=== PATIENT | female | born 1970 | race Caucasian/White ===

== ENCOUNTER 2017-02-01 18:02 | Emergency (ER) | payer BC ==
[2017-02-01 18:24] VITALS: BP 145/90; PULSE 86; TEMP 98.7; BMI 31.1
[2017-02-01] MEDS ORDERED: KETOROLAC TROMETHAMINE 15 MG/ML VIAL IM ONE (18:40)
[2017-02-01] MEDS ORDERED: SODIUM CHLORIDE 1,000 ML IV STA (18:41)
--- NOTE | 2017-02-01 18:45 | PDOC ---
History of Present Illness <Naa Christine - Last Filed: 02/01/17 18:45> - History of Present Illness Initial Comments: 02/01/17 19:03 CC: 1 week h/o flank pain Patient is a 46 y.o. female with no PMH who presents to our ED today c/o <Sabrina Jaimes - Last Filed: 02/01/17 19:04> - General Chief Complaint: Pain, Acute Stated Complaint: flank pain Time Seen by Provider: 02/01/17 18:34 Past History - Past Medical History Anemia: No Other medical history: denies. - Immunization History Td Vaccination: Yes TDAP Vaccination: Yes Immunization Up to Date: Yes - Psycho/Social/Smoking Cessation Hx Anxiety: No Suicidal Ideation: No Smoking Status: No Smoking History: Never smoked Years of Tobacco Use: 0 Number of Cigarettes Smoked Daily: 0 Hx Alcohol Use: No <Naa Christine - Last Filed: 02/01/17 18:45> <Sabrina Jaimes - Last Filed: 02/01/17 19:04> - Past Medical History Allergies/Adverse Reactions: Allergies Allergy/AdvReac Type Severity Reaction Status Date / Time No Known Allergies Allergy Verified 02/01/17 18:22 *Physical Exam - Vital Signs Last Vital Signs Temp Pulse Resp BP Pulse Ox 98.7 F 86 19 145/90 100 02/01/17 18:22 02/01/17 18:22 02/01/17 18:22 02/01/17 18:22 02/01/17 18:22 <Naa Christine - Last Filed: 02/01/17 18:45> - Vital Signs Last Vital Signs Temp Pulse Resp BP Pulse Ox 98.7 F 86 19 145/90 100 02/01/17 18:22 02/01/17 18:22 02/01/17 18:22 02/01/17 18:22 02/01/17 18:22 <Sabrina Jaimes - Last Filed: 02/01/17 19:04> ED Treatment Course - LABORATORY CBC & Chemistry Diagram: 02/01/17 18:45 02/01/17 18:45 - RADIOLOGY Radiology Studies Ordered: Category Date Time Status KIDNEY / RENAL US [US] Stat Ultrasound 02/01/17 18:41 Ordered - Medications Given in the ED: ED Medications Discontinued Medications Generic Name Dose Route Start Last Admin Trade Name Freq PRN Reason Stop Dose Admin Ketorolac Tromethamine 15 mg 02/01/17 18:40 02/01/17 18:57 Toradol Injection - IM 02/01/17 18:41 15 mg ONCE ONE Administration <Sabrina Jaimes - Last Filed: 02/01/17 19:04>
[2017-02-01] MEDS ORDERED: KETOROLAC TROMETHAMINE 15 MG/ML VIAL ONE (18:47)
[2017-02-01 18:57] LABS: BASOPHIL 0.5 % (0-2.0); EOSINOPHIL 1.5 % (0-4.5); MCH 28.7 pg (25.7-33.7); MCHC 32.9 g/dl (32.0-36.0); MEAN CELL VOLUME 87.3 fl (80-96); MEAN PLT VOLUME 7.8 fl (7.5-11.1); NEUTROPHILS 51.7 % (42.8-82.8); PLATELET COUNT 265 K/MM3 (134-434); RDW 15.3 % (11.6-15.6); WHITE BLOOD COUNT 9.2 K/mm3 (4.0-10.0)
--- NOTE | 2017-02-01 19:08 | PDOC ---
History of Present Illness - General Chief Complaint: Pain, Acute Stated Complaint: flank pain Time Seen by Provider: 02/01/17 18:34 History Source: Patient - History of Present Illness Initial Comments: 02/01/17 19:09 CC: 1 week h/o acute flank pain Patient is a 46 y.o. female with no significant PMH who presents to our ED today c/o of L sided flank pain that is constant, cramping and radiates both to her groin and down her L lower leg. ROS is positive for increased frequency with no dysuria or hematuria. Patient states Ibuprofen has provided some relief from the pain however the pain was particularly severe this morning. Patient denies any shortness of breath, chest pain, nausea, vomiting or diarrhea. Past Surgical: Breast enhancement Social: (-) nicotine, (-) alcohol, (-) marijuana/cocaine/heroin NKDA Past History - Past Medical History Allergies/Adverse Reactions: Allergies Allergy/AdvReac Type Severity Reaction Status Date / Time No Known Allergies Allergy Verified 02/01/17 18:22 Home Medications: Ambulatory Orders Ibuprofen [Motrin -] 600 mg PO TID #21 tablet 02/01/17 Anemia: No Other medical history: denies. - Immunization History Td Vaccination: Yes TDAP Vaccination: Yes Immunization Up to Date: Yes - Psycho/Social/Smoking Cessation Hx Anxiety: No Suicidal Ideation: No Smoking Status: No Smoking History: Never smoked Years of Tobacco Use: 0 Number of Cigarettes Smoked Daily: 0 Hx Alcohol Use: No Review of Systems - Review of Systems Constitutional: No: Chills, Fever HEENTM: No: Blurred Vision, Throat Pain Respiratory: No: Cough : Yes: Urgency. No: Burning, Dysuria Neurological: No: Headache, Numbness Psychiatric: No: Anxiety, Depression All Other Systems: Reviewed and Negative *Physical Exam - Vital Signs Last Vital Signs Temp Pulse Resp BP Pulse Ox 98.7 F 86 19 145/90 100 02/01/17 18:22 02/01/17 18:22 02/01/17 18:22 02/01/17 18:22 02/01/17 18:22 - Physical Exam General Appearance: Yes: Nourished, Appropriately Dressed HEENT: positive: EOMI, FELECIA Neck: positive: Trachea midline, Supple Respiratory/Chest: positive: Lungs Clear, Normal Breath Sounds Cardiovascular: positive: Regular Rhythm, Regular Rate, S1, S2 Gastrointestinal/Abdominal: positive: Normal Bowel Sounds, Soft, Other ( suprapubic pain) Musculoskeletal: positive: Normal Inspection, CVA Tenderness (R) Integumentary: positive: Normal Color, Dry, Diaphoresis Neurologic: positive: recording studio internship II-XII NML intact, Fully Oriented, Alert ED Treatment Course - LABORATORY CBC & Chemistry Diagram: 02/01/17 18:45 02/01/17 18:45 - ADDITIONAL ORDERS Additional order review: 02/01/17 18:45 RBC 4.49 D MCV 87.3 MCHC 32.9 RDW 15.3 MPV 7.8 Neutrophils % 51.7 Lymphocytes % 40.6 H Monocytes % 5.7 Eosinophils % 1.5 Basophils % 0.5 - RADIOLOGY Radiology Studies Ordered: Category Date Time Status KIDNEY / RENAL US [US] Stat Ultrasound 02/01/17 18:41 Ordered - Medications Given in the ED: ED Medications Discontinued Medications Generic Name Dose Route Start Last Admin Trade Name Freq PRN Reason Stop Dose Admin Ketorolac Tromethamine 15 mg 02/01/17 18:40 02/01/17 18:57 Toradol Injection - IM 02/01/17 18:41 15 mg ONCE ONE Administration Medical Decision Making - Medical Decision Making 02/01/17 19:48 Patient is a 46 y.o. female with no reported PMH who presents to our ED c/o 1 week h/o of L sided flank pain that radiates both to her groin and down her leg. Initial DDx is nephrolithiasis vs. UTI vs sciatica. PLAN 1. UA 2. CMP, CBC 3. Bedside U/S --> Kidney/Bladder U/S 4. Toradol + 1 L IV NS 02/01/17 20:02 UA significant for 3+ Blood, Leukocyte Esterase (-), Nitrite (-). Renal U/S shows no hydronephrosis, no renal calculi. Patient discharged home with instruction to f/u with PCP for further evaluation. *DC/Admit/Observation/Transfer Diagnosis at time of Disposition: Flank pain - Discharge Dispostion Disposition: HOME Condition at time of disposition: Good Admit: No - Prescriptions Prescriptions: Ibuprofen [Motrin -] 600 mg PO TID #21 tablet - Patient Instructions Printed Discharge Instructions: DI for Kidney Stones, DI for Sciatica Additional Instructions: You were evaluated in the Emergency Department today for back pain. Your ultrasound was negative for any kidney stone. The radiation of the pain to your leg is suggestive of sciatica. A prescription for Motrin has been called to your pharmacy. Please take this three times daily as needed. Please do not take more than 3 pills daily. Please see your primary care physician in the next 7-10 days for further evaluation. Please return to the Emergency Department should you experience severe pain, shortness of breath, chest pain or severe discomfort.
[2017-02-01 19:10] LABS: URINE APPEARANCE CLEAR; URINE BILIRUBIN NEGATIVE (NEGATIVE); URINE BLOOD 2+ (NEGATIVE); URINE COLOR STRAW; URINE GLUCOSE (UA) NEGATIVE (NEGATIVE); URINE KETONE NEGATIVE (NEGATIVE); URINE LEUK ESTERASE NEGATIVE (NEGATIVE); URINE NITRITE NEGATIVE (NEGATIVE); URINE PROTEIN NEGATIVE (NEGATIVE); URINE UROBILINOGEN NEGATIVE mg/dL (0.2-1.0)
[2017-02-01 19:17] LABS: URINE RBC 9 /hpf (0-3); URINE WBC 1 /hpf (3-5)
[2017-02-01 19:22] LABS: ALBUMIN 3.6 g/dl (3.4-5.0); ANION GAP 8 (8-16); CO2 29 mmol/L (21-32); GLUCOSE,RANDOM 102 mg/dL (74-106)
[2017-02-01 19:25] LABS: ALK PHOS 117 U/L (45-117); BILIRUBIN,TOTAL 0.1 mg/dL (0.2-1.0); CREATININE 0.8 mg/dL (0.55-1.02); SGOT/AST 13 U/L (15-37); SGPT/ALT 20 U/L (12-78); TOT PROT 7.8 g/dl (6.4-8.2)
--- NOTE | 2017-02-01 19:58 | PDOC ---
Attending Attestation - Resident Resident Name: Sabrina Jaimes - ED Attending Attestation I have performed the following: I have examined & evaluated the patient, The case was reviewed & discussed with the resident, I agree w/resident's findings & plan, Exceptions are as noted - HPI HPI: 02/01/17 19:57 46-year-old female presents with left flank pain and lower back pain radiating down her left leg. She has complaint of increased urination. She denies any nausea, vomiting, fever or chills. - Physicial Exam PE: 02/01/17 19:58 46-year-old female, alert and oriented 3 ambulating the emergency department with complaint of left back pain that is radiating down her left leg. HEENT within normal limits Neck supple Lungs clear to auscultation bilaterally. CVS regular rate and rhythm S1, S2. Abdomen there is no tenderness or rebound in her upper or lower quadrants, abdomen is soft, flat Extremities full range of motion, no erythema, no cellulitis. Pain radiating from the left buttocks down the back of her leg Mild left CVA tenderness Neuro alert and oriented 3 ambulating with ease and emergency department - Medical Decision Making 02/01/17 22:47 no evidence of UTI, pt does have c/o pain radiating from lower buttocks down back of her leg IMP sciatica
== END 2017-02-01 21:11 | disposition home or self-care (01) ==
LOC: JER 18:02
PROC: 3E0337Z Introduction of Electrolytic and Water Balance Substance into Peripheral Vein, Percutaneous Approach (ICD-10-PCS; principal; 2017-02-01)
PROC: 3E0233Z Introduction of Anti-inflammatory into Muscle, Percutaneous Approach (ICD-10-PCS; 2017-02-01)
DX: M54.42 Lumbago with sciatica, left side (principal)
CPT/HCPCS: 36415; 76775-TC; 80053; 81003; 81015; 85025; 99283-25

== ENCOUNTER 2022-02-02 23:09 | Observation (INO) | payer BC ==
[2022-02-02 23:30] VITALS: RESP 18; BMI 32.0
[2022-02-03 00:49] LABS: BASO % 0.8 % (0-2.0); EOS % 1.3 % (0-4.5); HEMATOCRIT 40.8 % (32.4-45.2); HEMOGLOBIN 13.8 GM/dL (10.7-15.3); LYMPH % 35.6 % (8-40); MCH 28.9 pg (25.7-33.7); MCHC 33.9 g/dl (32.0-36.0); MEAN CELL VOLUME 85.1 fl (80-96); MEAN PLT VOLUME 7.2 fl (7.5-11.1); MONO % 7.1 % (3.8-10.2); NEUT % 55.2 % (42.8-82.8); PLATELET COUNT 298 10^3/uL (134-434); RBC 4.79 M/mm3 (3.60-5.2); RDW 15.7 % (11.6-15.6); WHITE BLOOD COUNT 11.7 K/mm3 (4.0-10.0)
[2022-02-03 01:10] LABS: CHLORIDE 99 mmol/L (98-107); SODIUM 134 mmol/L (136-145)
[2022-02-03 01:12] LABS: ALBUMIN 3.8 g/dl (3.4-5.0); CALCIUM 8.8 mg/dL (8.5-10.1)
[2022-02-03 01:13] LABS: BLOOD UREA NITROGEN 34.3 mg/dL (7-18); CO2 26 mmol/L (21-32); GLUCOSE,RANDOM 96 mg/dL (74-106)
[2022-02-03 01:16] LABS: CREATININE 1.4 mg/dL (0.55-1.3); SGOT/AST 49 U/L (15-37); SGPT/ALT 21 U/L (13-61)
[2022-02-03 01:17] LABS: BILIRUBIN,TOTAL 0.4 mg/dL (0.2-1); TOT PROT 8.6 g/dl (6.4-8.2)
[2022-02-03 01:19] LABS: ALK PHOS 101 U/L (45-117)
[2022-02-03] MEDS ORDERED: SODIUM CHLORIDE 0.9% 500 ML INFUS.BAG IV ONE (01:23)
[2022-02-03 01:31] LABS: ANION GAP 8 MMOL/L (8-16)
[2022-02-03 02:43] LABS: CALCIUM 8.3 mg/dL (8.5-10.1)
[2022-02-03 02:47] LABS: CREATININE 1.1 mg/dL (0.55-1.3)
[2022-02-03 03:05] LABS: EPI CELLS 2 /uL (0-25.1); HYALINE CASTS 0 /uL (0-3.1); PH,URINE 5.5 (5.0-8.0); URINE APPEARANCE CLEAR; URINE BACTERIA 18 /uL (0-1359); URINE BILIRUBIN NEGATIVE (NEGATIVE); URINE COLOR YELLOW; URINE GLUCOSE (UA) NEGATIVE (NEGATIVE); URINE KETONE NEGATIVE (NEGATIVE); URINE LEUK ESTERASE NEGATIVE (NEGATIVE); URINE NITRITE NEGATIVE (NEGATIVE); URINE PROTEIN NEGATIVE (NEGATIVE); URINE RBC 13 /uL (0-23.9); URINE UROBILINOGEN 0.2 mg/dL (0.2-1.0); URINE WBC 4 /uL (0-25.8)
[2022-02-03] MEDS ORDERED: DOCUSATE SODIUM 100 MG CAPSULE (FP) PO PRN (03:44)
[2022-02-03] MEDS ORDERED: DEXTROSE 5%-NORMAL SALINE 1,000 ML IV SCH (03:45)
[2022-02-03] MEDS ORDERED: ACETAMINOPHEN 1000 MG/100 ML BAG IVPB PRN (03:47)
[2022-02-03] MEDS ORDERED: HEPARIN NA (PORCINE) 5,000 UNITS/ML 1ML VIAL SQ SCH (06:00)
[2022-02-03] MEDS ORDERED: HEPARIN NA (PORCINE) 5,000 UNITS/ML 1ML VIAL ONE (06:34)
[2022-02-03 07:04] LABS: INR 1.09 (0.83-1.09); PROTHROMBIN TIME (PATIENT) 12.5 SEC (9.7-13.0)
[2022-02-03 07:07] LABS: ACTIVATED PTT 32.7 SECONDS (25.2-36.5)
[2022-02-03 07:17] LABS: CALCIUM 8.8 mg/dL (8.5-10.1)
[2022-02-03 07:18] LABS: BLOOD UREA NITROGEN 26.2 mg/dL (7-18); MAGNESIUM 2.4 mg/dL (1.8-2.4)
[2022-02-03 13:41] VITALS: BP 105/55; PULSE 62; TEMP 97.8
[2022-02-04] MEDS ORDERED: ACETAMINOPHEN 325 MG TABLET (FP) PO PRN (04:00)
== END 2022-02-03 14:38 | disposition home or self-care (01) ==
LOC: JER 23:09 → JERBED 02-03 03:15
PROVIDERS: ADMIT Internal Medicine; ATTEND Internal Medicine
PROC: 3E0337Z Introduction of Electrolytic and Water Balance Substance into Peripheral Vein, Percutaneous Approach (ICD-10-PCS; principal; 2022-02-03)
PROC: 3E023GC Introduction of Other Therapeutic Substance into Muscle, Percutaneous Approach (ICD-10-PCS; 2022-02-03)
DX: R94.31 Abnormal electrocardiogram [ECG] [EKG] (principal); R55 Syncope and collapse; N17.9 Acute kidney failure, unspecified; M25.562 Pain in left knee; M25.561 Pain in right knee
CPT/HCPCS: 0241U-QW; 36415; 71046-TC-FY; 80048; 80053; 81003; 83735; 84100; 84443; 84484; 85025; 85610; 85730; 87086; 93005; 93010; 96360; 96372; 99285-25; G0378; J1644